=== PATIENT | female | born 1985 ===

== ENCOUNTER 2024-11-27 10:48 | Outpatient (AMB) | payer BC, SELFPAY ==
--- NOTE | 2024-11-27 11:27 | A.OFFPC_ITS ---
Vital Signs 11/27/24 11:32 Height 4 ft 11.21 in Weight 141 lb 2 oz BMI 28.3 BP 106/68 Blood Pressure Location Rt brachial Position Sitting Pulse 87 Pulse Source Pulse Oximeter Temp 98.3 F Temp Source Temporal Artery Scan Pulse Oximetry (%) 97 Oxygen Delivery Method Room Air Intake Visit Reasons: Annul PE- New patient Accompanied by: Self / Same As Patient Allergies No Known Allergies Allergy (Verified 11/27/24 11:38) Medication List - Last Reconciled 11/27/24 by Aliya Morales PA-C aspirin 162 mg PO DAILY docosahexaenoic acid ( DHA) mg PO ferrous gluconate 324 mg PO DAILY Tobacco use date assessed: 11/27/24 Dental Screening Dental Screen Date: 11/27/24 Did you have a dental visit in the last 12 months?: Yes Was dental information given to patient?: Patient has dentist HPI Annul PE- New patient HPI Details The patient is a 39-year-old female presenting with the need to establish care with a new primary care provider due to insurance changes, an annual physical exam and to address cardiac concerns during . The patient is currently seven months with a due date of February 13. This is her first , and she has a history of one prior that did not result in a live . She also has a history of 1 . She is last menstrual period May 15. She is currently being followed by [facility]. In August, the patient experienced a syncopal episode while out for breakfast, which led to a hospital visit at [facility]. During this episode, she felt nauseous and fainted, resulting in a fall. The hospital evaluation suggested possible dehydration, and an EKG showed some irregularities, prompting her OB to recommend a cardiology referral. She had an episode of syncope and was seen in the emergency department in August. At that time The EKG revealed a T wave inversion in lead 3, but no acute ischemia was noted. She was then discharged home. The patient reports occasional chest pain, which she attributes to compression from , but no recent syncope or severe episodes have occurred. Reports her OBGYN noticed that they reported a T-wave inversion in lead 3 and that she should go to the web development director. The OBGYN tried to refer the patient to the web development director although due to the OBGYN not being a primary care provider her insurance did not allow this and patient needed to establish a new primary care provider for Cardiology referral. The patient has a family history of heart issues, breast cancer, and skin cancer. Her paternal grandmother of breast cancer, and her father has skin cancer. Social History - Family status: , expecting firs t child - Housing: Recently moved to [facility] Medical History (Updated 11/27/24 @ 12:50 by Aliya Morales PA-C) History of herpes genitalis Heart murmur T wave inversion in EKG Annual physical exam Atypical syncope Social History Housing: House Patient Tobacco Use Status: Former Tobacco user service: No Current occupational status: employed Cognitive needs: No Hearing needs: No Vision needs: Yes (rx glasses) Questionnaire PHQ-9 Over the last 2 weeks, how often have you been bothered by any of the following problems? 1. Little interest or pleasure in doing things: not at all 2. Feeling down, depressed, or hopeless: not at all 3. Trouble falling or staying asleep, or sleeping too much: not at all 4. Feeling tired or having little energy: not at all 5. Poor appetite or overeating: not at all 6. Feeling bad about yourself - or that you are a failure or have let yourself or your family down: not at all 7. Trouble concentrating on things, such as reading the newspaper or watching television: not at all 8. Moving or speaking so slowly that other people could have noticed. Or the opposite - being so fidgety or restless that you have been moving around a lot more than usual: not at all 9. Thoughts that you would be better off or of hurting yourself in some way: not at all Total score: 0 Depression Screening Interpretation: Negative Depression Screening Done: Yes 12414 - PHQ-9 Billing: Yes Source: Developed by Drs. Saran Thomas, Mimi Smith, Alexander Yanes and colleagues, with an educational alicia from [employer]. Thrive Questionnaire Date Thrive assessed: 11/27/24 I am a: Patient What is your living situation today?: I have a steady place to live Within the past 12 months, did the food you bought not last and you didn't have the money to get more?: Never true Within the past 12 months, did you worry whether your food would run out before you got money to buy more?: Never true Do you have trouble paying for medicines?: No Do you have trouble getting transportation to medical appointments?: No Do you have trouble paying your heating and electricity bill?: No Do you have trouble taking care of your child, family member or friend?: No Do you have trouble with day-to-day activities such as bathing, preparing meals, shopping, managing finances, etc.?: No Are you currently unemployed and looking for a job?: No Are you interested in more education?: No Please select the resources that you would like help with: None THRIVE Score: 0 AUDIT C Alcohol Use Questionnaire (AUDIT-C) 1. How often do you have a drink containing alcohol?: Never Total Score: 0 Score Reviewed/Action Taken: No LEIA-7 AMB Questionnaire LEIA-7 Date LEIA - 7 assessed: 11/27/24 Feeling nervous, anxious, or on edge: 0 = Not at all Not being able to stop or control worryin = Not at all Worrying too much about different things: 0 = Not at all Trouble relaxin = Not at all Being so restless that it is hard to sit still: 0 = Not at all Becoming easily annoyed or irritable: 0 = Not at all Feeling afraid as if something awful might happen: 0 = Not at all Total LEIA-7 score (0-4 normal; 5-9 mild; 10-14 moderate; 15-21 severe): 0 Source: Developed by Drs. Saran Thomas, Mimi Smith, Alexander Yanes and colleagues, with an educational alicia from [employer]. LEIA-7 Assessment Billing LEIA-7 Assessment Tool: LEIA-7 Assessment 88646 Review of Systems Const Details: - Cardiovascular: Reports occasional chest pain, denies recent syncope - Respiratory: Reports constant shortness of breath, denies recent severe episodes - Gastrointestinal: Denies black or bloody stools, unintentional weight loss All systems reviewed & are unremarkable except as noted in HPI and below Physical exam (Primary Care) Vital Signs: Last Vital Signs Temp 98.3 F 11/27/24 11:32 Pulse 87 11/27/24 11:32 BP 106/68 11/27/24 11:32 Pulse Ox 97 11/27/24 11:32 Oxygen Delivery Method Room Air 11/27/24 11:32 Care Plan Goal for BP management: <140/90 at Goal BMI result Body Mass Index 28.3 BMI Assessment/Plan discussion: High BMI High, discussed plan: lifestyle, weight reduction, dietary, physical activity and other Tobacco/Smoking Status: Tobacco use Status Tobacco use date assessed 11/27/24 11/27/24 11:34 Patient Tobacco Use Status Former Tobacco user 11/27/24 11:34 PHQ-9: PHQ-9 Score PHQ-9: Total score 0 11/27/24 11:34 Depression Screening Interpretation: Negative Thrive Assessment: Date of Thrive Assessment Date Thrive assessed 11/27/24 11/27/24 11:34 Const Other: Appearance: Alert. Oriented X3. No acute distress. Head: Normal external exam. Normocephalic. Atraumatic. Eyes: Pupils are equal, round, and reactive to light. Extraocular movements intact. Conjunctiva and sclera normal. Eyelids normal. Ears: External auditory canal normal. Tympanic membranes normal. Throat: Pharynx normal. Uvula midline. Moist mucous membranes. Neck: Normal inspection. Neck supple. Full range of motion. No adenopathy. Thyroid Normal. No meningeal signs. No neck mass noted. Cardiovascular: Normal heart rate and rhythm. Heart sound normal. No murmurs noted. Pulses normal throughout. Note: A murmur was detected during the exam. Respiratory: No respiratory distress. Painless inspiration. Breath sounds normal. No wheezes/rales/rhonchi noted. Chest nontender. No accessory muscle usage noted or decreased air movement noted. Abdomen: Soft and nontender. Gravid uterus consistent with dates. Back: No costovertebral angle tenderness. Full range of motion noted. Skin: Skin warm and dry. Normal skin color. Normal skin turgor. No rashes/lesions/lacerations noted. Extremities: No lower extremity edema. Extremities exhibit normal range of motion. Extremities nontender. Neuro: Oriented X 3. No motor deficit. No sensory deficit. Reflexes normal. Office Procedures Flu Questionnaire Does the patient have a severe egg allergy?: No Does the patient have severe life threatening allergies?: No Does the patient have a fever or illness today?: No Has the patient ever had Guillain-[place] Syndrome?: No Has the patient ever had any past reaction to a flu shot?: No Immunizations Fluarix [id number] (PF) 45 mcg (15 mcg x 3)/0.5 mL IM syringe Performing Provider: Aliya Morales PA-C [facility] Documented (not given) by: Lisbeth Hoang CMA on 11/27/24 11:34 Reason Not Given: Patient Refused Results Reviewed Results Reviewed: - EKG: T wave inversion in lead 3, normal sinus rhythm, no acute ischemia Coding Level of Care Code New Pt Level 4 (10218) New Pt Prev Care 40-64y(95765) Diagnoses Annual physical exam Z00.00 Atypical syncope R55 T wave inversion in EKG R94.31 Heart murmur R01.1 Z34.90 Additional Codes PHQ-9 - 56563 - PHQ-9 Billing: Yes ([id number]) LEIA-7 Assessment Billing - LEIA-7 Assessment Tool: LEIA-7 Assessment 32320 ([id number]) Time Spent (min) 60 Assessment & Plan Assessment & Plan (1) Annual physical exam: Code(s): Z00.00 - Encounter for general adult medical examination without abnormal findings Category: Medical (2) Atypical syncope: Code(s): R55 - Syncope and collapse Category: Medical Plan: The patient experienced a syncopal episode in August, which was evaluated at [facility]. The episode was possibly related to dehydration, and an EKG showed irregularities. A referral to cardiology has been recommended for further evaluation. (3) T wave inversion in EKG: Code(s): R94.31 - Abnormal electrocardiogram [ECG] [EKG] Category: Medical Plan: The EKG showed a T wave inversion in lead 3, with no evidence of acute ischemia. The patient is advised to follow up with cardiology for further assessment and management. (4) Heart murmur: Code(s): R01.1 - Cardiac murmur, unspecified Category: Medical Plan: A heart murmur was detected during the physical examination. The patient is advised to consult with a web development director for further evaluation and management. (5) : Code(s): Z34.90 - Encounter for supervision of normal , unspecified, unspecified trimester Category: Medical Plan: The patient is currently seven months with a due date of February 13. She is advised to continue regular care and follow up with her OB for ongoing management of her . Plan Plan Patient was informed and verbally consented to the use of an ambient scribe for clinic note documentation during this visit. 1. Syncope The patient experienced a syncopal episode in August, which was evaluated at [facility]. The episode was possibly related to dehydration, and an EKG showed irregularities. A referral to cardiology has been recommended for further evaluation. 2. T Wave Inversion In Lead 3 On Ekg The EKG showed a T wave inversion in lead 3, with no evidence of acute ischemia. The patient is advised to follow up with cardiology for further assessment and management. 3. Heart Murmur A heart murmur was detected during the physical examination. The patient is advised to consult with a web development director for further evaluation and management. 4. The patient is currently seven months with a due date of February 13. She is advised to continue regular care and follow up with her OB for ongoing management of her . I discussed with the patient the importance of following up with cardiology due to the detected heart murmur and EKG findings. We reviewed the potential implications of these findings and the need for further evaluation to ensure her cardiac health during . I also emphasized the importance of regular care and monitoring for any new symptoms. Orders: Orders Comprehensive [place]. Panel Fast Today Z00.00 - Encounter for general adult medical examination without abnormal findings Magnesium Today Z00.00 - Encounter for general adult medical examination without abnormal findings Lipid Panel Today Z00.00 - Encounter for general adult medical examination without abnormal findings Vitamin B12 and Folate Today Z00.00 - Encounter for general adult medical examination without abnormal findings C Reactive Protein Today Z00.00 - Encounter for general adult medical examination without abnormal findings Influenza [id number] Immunization Today Z23 - Encounter for immunization Complete Blood Count Auto Diff Today Z00.00 - Encounter for general adult medi reynaldo examination without abnormal findings Erythrocyte Sedimentation Rate Today Z00.00 - Encounter for general adult medical examination without abnormal findings Liver Panel Today Z00.00 - Encounter for general adult medical examination without abnormal findings Vitamin D 25-OH Total Today Z00.00 - Encounter for general adult medical examination without abnormal findings TSH reflex Free T4 Today Z00.00 - Encounter for general adult medical examination without abnormal findings UA CC w/rflx Micro + Cult Today Z00.00 - Encounter for general adult medical examination without abnormal findings Referrals Cardiology Referral R55 - Syncope and collapse Patient Instructions: - Follow up with cardiology for further evaluation of heart murmur and EKG f indings. - Continue regular care and monitor for any new symptoms. - Complete fasting blood work as ordered. - Schedule a follow-up appointment in three months.
[2024-11-27 11:32] VITALS: BP 106/68; PULSE 87; TEMP 36.8; O2SAT 97; BMI 28.3
--- OUTSIDE RECORDS SUMMARY | 2024-11-27 13:09 | XMS_ITS ---
Author Name [facility] Organization Unknown Results Test Name/Text Value Interpretation Date Range Source Service Cmmt XXX-Imp Aldana ID NOW Normal [facility]20[facility]23 [facility] SYMPTOMATIC DEF.BY CDC Unknown Normal 09/20/2023 [facility] BZE Ur Ql Scn NEGATIVE Normal [facility] Amphet Ur Ql Scn NEGATIVE Normal 09/20/2023 - [facility] Cannabinoids Ur Ql Scn NEGATIVE Normal 09/20/2023 - [facility] Barbiturates Ur Ql Scn NEGATIVE Normal 09/20/2023 - [facility] Benzodiaz Ur Ql Scn POSITIVE Abnormal 09/20/2023 - [facility] BILIRUB DIRECT SERPL [facility] 0.0 mg/dL Normal 09/20/2023 0 - 0.2 [facility] PROT SERPL [facility] 7.3 g/dL Normal 09/20/2023 6.4 - 8.5 [facility] ALT SERPL CC[facility] 22.0 U/L Normal 09/20/2023 7 - 52 [facility] AST SERPL [facility] 22.0 U/L Normal 09/20/2023 5 - 40 [facility] ALP SERPL-CCNC 56.0 U/L Normal 09/20/2023 34 - 104 [facility] ALBUMIN SERPL BCG MCNC 4.5 g/dL Normal 09/20/2023 3.5 - 5 [facility] BILIRUB SERPL [facility] 0.3 mg/dL Normal 09/20/2023 0.3 - 1 [facility] ALBUMIN/GLOB SERPL MRTO 1.6 Normal 09/20/2023 [facility] CALCIUM SERPL [facility] 9.4 mg/dL Normal 09/20/2023 8.4 - 10.2 [facility] CHLORIDE SERPL SCNC 103.0 mmol/L Normal 09/20/2023 98 - 1 07 [facility] ANION GAP SERPL SC[facility] 15.0 mmol/L Above high normal 5 - 14 [facility] CREAT SERPL [facility] 0.7 mg/dL Normal 09/20/2023 0.5 - 1 [facility] BUN SERPL [facility] 11.0 mg/dL Normal 09/20/2023 7 - 17 CTT HS HCO3 SER SCNC 26.0 mmol/L Normal 09/20/2023 24 - 32 CTT HS GLUCOSE SERPL MCNC 108.0 mg/dL Normal 09/20/2023 70 - 199 [facility] Glomerular filtration rate/1.73 sq M. predicted 112.0 Normal 09/20/2023 60 - [facility] SODIUM SERPL SC[facility] 144.0 mmol/L Normal 09/20/2023 135 - 14 5 [facility] POTASSIUM SERPL [facility] 3.9 mmol/L Normal 09/20/2023 3.5 - 5 .1 [facility] LIPASE SERPL [facility] 24.0 U/L Normal 09/20/2023 11 - 82 [facility] AMYLASE SER[facility] 34.0 U/L Normal 09/20/2023 29 - 103 [facility] NEUTROPHILS NFR BLD AUTO 55.7 % Normal 09/20/2023 44 - 74 [facility] BASOPHILS NFR BLD AUTO 1.1 % Normal 09/20/2023 0 - 2 COUNTS INCLUDE 234 BEDS AT THE [facility] EOSINOPHIL NFR BLD AUTO 1.4 % Normal 09/20/2023 0 - 6 COUNTS INCLUDE 234 BEDS AT THE [facility] BASOPHILS IN BLOOD BY AUTOMATED COUNT 0.1 K/uL Normal 09/20/2023 0 - 0.2 COUNTS INCLUDE 234 BEDS AT THE [facility] IMMATURE GRANULOCYTE, PERCENT 0.5 % Normal 09/20/2023 0 - 1 COUNTS INCLUDE 234 BEDS AT THE [facility] NUCLEATED RBC 0.0 % Normal 09/20/2023 0 - 1 [facility] MONOCYTES NFR BLD AUTO 4.0 % Normal 09/20/2023 2 - 12 [facility] NEUTROPHILS NO. BLD AUTO 3.5 K/uL Normal 09/20/2023 1.8 - 7.8 COUNTS INCLUDE 234 BEDS AT THE [facility] MONOCYTES NO. BLD AUTO 0.3 K/uL Normal 09/20/2023 0 - 0. 8 COUNTS INCLUDE 234 BEDS AT THE [facility] EOSINOPHIL NO. BLD AUTO 0.1 K/uL Normal 09/20/2023 0 - 0.5 COUNTS INCLUDE 234 BEDS AT THE [facility] LYMPHOCYTES NO. BLD AUTO 2.4 K/uL Normal 09/20/2023 1 - 3.2 COUNTS INCLUDE 234 BEDS AT THE [facility] LYMPHOCYTES NFR BLD AUTO 37.3 % Normal 09/20/2023 20 - 48 COUNTS INCLUDE 234 BEDS AT THE [facility] IMMATURE GRANULOCYTE, ABSOLUTE 0.03 k/uL Normal 09/20/2023 - 0.1 COUNTS INCLUDE 234 BEDS AT THE [facility] MCV RBC AUTO 87.2 fL Normal 09/20/2023 78 - [facility] NO. BLD AUTO 4.23 M/uL Normal 09/20/2023 4.2 - 5.4 [facility] HGB BLD MCNC 11.7 g/dL Below low normal 09/20/2023 12.5 - 16 COUNTS INCLUDE 234 BEDS AT THE [facility] PMV BLD AUTO 8.6 fL Normal 09/20/2023 7.4 - 11.4 [facility] PLATELET NO. BLD AUTO 375.0 K/uL Normal 09/20/2023 150 - 450 COUNTS INCLUDE 234 BEDS AT THE [facility] MCHC RBC AUTO MCNC 31.7 g/dL Below low normal 09/20/2023 32 - 36 COUNTS INCLUDE 234 BEDS AT THE [facility] MCH RBC QN AUTO 27.7 pg Normal 09/20/2023 25 - 33 [facility] WBC NO. BLD AUTO 6.3 K/uL Normal 09/20/2023 4 - 10.[facility] VFR BLD AUTO 36.9 % Below low normal 09/20/2023 37 - 47 COUNTS INCLUDE 234 BEDS AT THE [facility] RDW RBC AUTO RTO 14.6 % Normal 09/20/2023 12.1 - 16.2 COUNTS INCLUDE 234 BEDS AT THE [facility] ETHANOL SERPL MCNC 323.0 mg/dL Above high normal 09/20/2023 0 - 10 COUNTS INCLUDE 234 BEDS AT THE [facility] LDH SERPL L TO P CCNC 158.0 U/L Normal 09/20/2023 125 - 2 20 COUNTS INCLUDE 234 BEDS AT THE [facility] History of Medication Use Medication Directions Dispensed Refills Start Date End Date Status sulfamethoxazole-trim ethoprim (BACTRIM DS,SEPTRA DS) 800-160 MG per tablet Take 1 tablet by mouth 2 (two) times a day. 5 active disulfiram (ANTABUSE) 250 MG tablet Take 1 tablet (250 mg total) by mouth daily. 5 active traZODone (DESYREL) 50 MG tablet Take 1 tablet (50 mg total) by mouth nightly. 5 active varenicline (CHANTIX ALBARO) 0.5 MG X 11 & 1 MG X 42 tablet Take one 0.5 mg tab by mouth once daily for 3 days, then take one 0.5 mg tab twice daily for 4 days, then take one 1 mg tab twice daily. 5 active vortioxetine (TRINTELLIX) 20 MG tablet Take 1 tablet (20 mg total) by mouth daily. 5 active Vitamin D3 (CHOLECALCIFEROL) 50 MCG (2000 UT) tablet Take 1 tablet (2,000 Units total) by mouth daily. 4 active buprenorphine-naloxon e (SUBOXONE) 2-0.5 MG SL tablet 1 tablet 1 tablet, Sublingual, Once, On Tue09/21/23 at 0630, For 1 dose 4 09/21/19 24 completed ondansetron (ZOFRAN-ODT) 4 MG disintegrating tablet 4 mg 4 mg, Oral, Once, On Tue09/21/23 at 0245, For 1 dose 4 09/21/19 completed buPROPion (WELLBUTRIN XL) 24 hr tablet 300 mg 300 mg, Oral, Daily, First dose on Tue09/21/23 at 0930DO NOT CRUSH 4 active gabapentin (NEURONTIN) capsule 400 mg 400 mg, Oral, 3 times daily, First dose on Tue09/21/23 at 0930 4 active hydrOXYzine (VISTARIL) capsule 50 mg 50 mg, Oral, 3 times daily PRN, anxiety, Starting on Tue09/21/23 at 0927 4 active propranolol (INDERAL) tablet 10 mg 10 mg, Oral, 3 times daily, First dose on Tue09/21/23 at 0900 4 active thiamine mononitrate (VITAMIN B-1) tablet 100 mg 100 mg, Oral, Daily, First dose on Tue09/21/23 at 0900 4 active LORazepam (ATIVAN) tablet 2 mg 2 mg, Oral, Every 30 min PRN, sedation, CIWA 16-20, Starting on Tue09/20/23 at 1323Hold if respiratory rate less than 10 or O2 sat less than 92%. Per alcohol withdrawal protocol. 4 active nicotine (NICODERM CQ) 21 MG/24HR 1 patch 1 patch, Transdermal, Administer over 24 Hours, Daily, First dose (after last modification) on Tue09/21/23 at 1045 4 active gabapentin (NEURONTIN) 400 MG capsule Take 1 capsule (400 mg total) by mouth 3 (three) times a day. 4 active Trintellix 20 MG TABS tablet Take 1 tablet (20 mg total) by mouth daily. 4 active Bactrim DS 800 mg-160 mg tablet Take 1 tablet every 12 hours by oral route as directed for 3 days. 4 active famotidine (Pepcid) tablet 20 mg 20 mg, oral, Once, On Tue04/18/23 at 1759, For 1 dose 4 04/18/19 24 completed iohexoL (Omnipaque) 350 mg iodine/mL injection 80 mL 80 mL, intravenous, Once in imaging, contrast, Starting on Tue04/18/23 at 1641, For 1 dose 4 04/18/19 24 completed lactulose 20 gram/30 mL oral solution 20 g 20 g, oral, Once, On Tue04/18/23 at 1759, For 1 dose 4 04/18/19 24 completed sodium chloride 0.9 % bolus 1,000 mL 1,000 mL, intravenous, at 1,000 mL/hr, Administer over 1 Hours, Once, On Tue04/18/23 at 1519, For 1 dose 4 04/18/19 completed sodium chloride 0.9 % flush 60 mL 60 mL, intravenous, Administer over 1 Minutes, Once in imaging, imaging study, Starting on Tue04/18/23 at 1641, For 1 dose 4 04/18/19 24 completed gabapentin (NEURONTIN) 300 MG capsule Take 2 capsules (600 mg total) by mouth 3 (three) times a day. 3 01/07/20 23 active hydrOXYzine pamoate (VISTARIL) 50 MG capsule Take 1 capsule (50 mg total) by mouth 3 (three) times a day as needed for anxiety. 3 01/07/20 active buprenorphine-naloxon e (SUBOXONE) 2-0.5 mg per SL film Take 1/2 film daily, and can also take one additional 1/2 film daily as needed for cravings or withdrawal 3 active buprenorphine-naloxon e (SUBOXONE) 2-0.5 mg per SL film Place 0.5 Film under the tongue daily. May take in addition to scheduled 0.5 film dose for a total of 2 mg daily for breakthrough withdrawal Max Daily Amount: 0.5 Film 3 01/13/20 active LORazepam (ATIVAN) tablet 1 mg 1 mg, Oral, Every 1 hour prn, sedation, CIWA 8-11, Starting on Tue09/20/23 at 1323Hold if respiratory rate less than 10 or O2 sat less than 92%. Per alcohol withdrawal protocol. 3 09/20/19 24 active LORazepam (ATIVAN) 1 MG tablet Take half tablet (0.5 mg) in AM and half a tablet (0.5mg) in the afternoon and then one tablet (1mg) at night. 3 suspended naloxone (NARCAN) 4 mg/0.1 mL Liquid nasal spray device [place] contents (4mg) into one nostril once. May repeat every 2 to 3 minutes in alternating nostrils. Call 911 immediately after use. 3 12/15/19 active prazosin (MINIPRESS) 1 MG capsule Take 1 capsule (1 mg total) by mouth nightly. 3 01/07/20 23 active gabapentin (NEURONTIN) 300 MG capsule Take 1 capsule (300 mg total) by mouth 3 (three) times a day. 3 01/01/20 23 active gabapentin (NEURONTIN) 300 MG capsule Take 1 capsule (300 mg total) by mouth 3 (three) times a day. 3 active linaclotide (Linzess) 145 MCG Cap capsule Take 1 capsule (145 mcg total) by mouth daily. 3 01/13/20 23 active buPROPion (WELLBUTRIN XL) 300 MG 24 hr tablet Take 1 tablet (300 mg total) by mouth daily. Swallow whole; do not crush, chew, or divide. 3 01/07/20 23 active buprenorphine HCl-naloxone HCl 2-0.5 mg (Suboxone) 2-0.[address] sublingual film Place 2 each under the tongue daily. 3 active buprenorphine HCl-naloxone HCl 2-0.5 mg (SUBOXONE) 2-0.[address]ling[address] film Place 1 each under the tongue. 3 active buprenorphine-naloxon e (SUBOXONE) 2-0.5 mg per SL film Place 1 Film under the tongue daily. Do not start before November 03, 2022. Max Daily Amount: 1 Film 3 suspended folic acid (FOLVITE) 1 MG tablet Take 1 tablet (1 mg total) by mouth daily. Do not start before November 03, 2022. 3 suspended linaclotide (Linzess) 145 MCG CAPS Take 1 capsule (145 mcg total) by mouth daily. 3 active multivitamin with minerals Tab tablet Take 1 tablet by mouth daily. Do not start before November 03, 2022. 3 suspended thiamine mononitrate (VITAMIN B-1) 100 MG tablet Take 2 tablets (200 mg total) by mouth daily. Do not start before November 03, 2022. 3 suspended folic acid (FOLVITE) tablet 1 mg 1 mg, Oral, Daily, First dose on Tue09/21/23 at 0930 3 09/20/19 24 active QUEtiapine (SEROquel) 100 MG tablet Take 1 tablet (100 mg total) by mouth nightly as needed (sleep). 3 01/22/20 23 active acamprosate (CAMPRAL) 333 MG tablet Take 2 tablets (666 mg total) by mouth 3 (three) times a day. 3 01/01/20 23 active acamprosate (CAMPRAL) 333 MG tablet Take 2 tablets (666 mg total) by mouth 3 (three) times a day. 3 active buPROPion (WELLBUTRIN XL) 300 MG 24 hr tablet Take 1 tablet (300 mg total) by mouth daily. 3 active hydrOXYzine (ATARAX) 50 MG tablet Take 1 tablet (50 mg total) by mouth 4 (four) times a day as needed. 3 active Multiple Vitamins-Minerals (Therapeutic-M/Lutein ) TABS Take 1 tablet by mouth daily. 3 active QUEtiapine (SEROquel) 100 MG tablet Take 1 tablet (100 mg total) by mouth every evening as needed. 3 active ALPRAZolam (XANAX) 0.5 MG tablet Take 1 tablet (0.5 mg total) by mouth 2 (two) times a day. 3 active nitrofurantoin monohydrate (MACROBID) 100 MG capsule Take 1 capsule (100 mg total) by mouth 2 (two) times a day with meals. Dispense generic equivalent of MACROBID 2 12/03/19 22 active propranolol (INDERAL) 40 MG tablet 1 active Trintellix 10 MG tablet 1 active ParaGard T 380A 380 square mm intrauterine device Take 1 device by intrauterine route. 0 06/16/19 24 completed Mirena 21 mcg/24 hours (8 yrs) 52 mg intrauterine device Take 1 device by intrauterine route. 8 12/04/19 20 completed clindamycin-benzoyl peroxide (BENZACLIN) 1-5 % external gel Apply topically daily. 5 active hydroquinone 4 % cream Apply topically 2 (two) times a day. Use to dark nogueira twice a day for three months 5 active spironolactone (ALDACTONE) 100 MG tablet Take 1 tablet (100 mg total) by mouth daily. 5 active bupropion HCl SR 150 mg tablet,12 hr sustained-release TAKE 1 TABLET DAILY X 7 DAYS, THEN TWICE A DAY 06/22/19 25 completed ciprofloxacin 0.3 % eye drops 2 DROPS OPHTHALMICALLY INTO AFFECTED EYE EVERY 4 HOURS 06/22/19 25 completed clonidine HCl 0.1 mg tablet TAKE 1 TABLET BY MOUTH TWICE A DAY NEEDED 06/22/19 25 completed cyanocobalamin (vit B-12) 1,000 mcg/mL injection solution INJECT 1 MILLILITER INTRAMUSCULARLY WEEKLY 06/22/19 25 completed disulfiram 250 mg tablet TAKE 1 TABLET BY MOUTH EVERY DAY 06/22/19 25 completed gabapentin 400 mg capsule TAKE 2 CAPSULES BY MOUTH 3 TIMES A DAY. 06/22/19 25 completed Linzess 145 mcg capsule TAKE 1 CAPSULE DAILY AT LEAST 30 MINUTES BEFORE THE FIRST MEAL OF THE DAY ON AN EMPTY STOMACH 06/22/19 25 active meloxicam 15 mg tablet 1 TABLET ORALLY DAILY FOR 15 DAYS, THEN NEEDED FOR PAIN 06/22/19 25 completed prednisone 20 mg tablet 2 TABLETS DAILY X 3 DAYS, THEN 1 TAB DAILY X 3 DAYS 06/22/19 25 completed propranolol 10 mg tablet TAKE 1 TABLET BY MOUTH THREE TIMES A DAY 06/22/19 25 completed Suboxone 4 mg-1 mg sublingual film TAKE 1 APPLICATION (SUBLINGUAL) 1 TIME PER DAY FOR 15 DAYS 06/22/19 25 completed trazodone 50 mg tablet TAKE 1 TABLET BY MOUTH EVERY DAY AT NIGHT 06/22/19 25 completed valacyclovir 1 gram tablet TAKE 1 TABLET BY MOUTH TWICE A DAY DIRECTED FOR 10 DAYS 06/22/19 25 completed Vitamin D3 50 mcg (2,000 unit) tablet TAKE 1 TABLET BY MOUTH EVERY DAY 06/22/19 25 completed gabapentin 300 mg capsule TAKE 3 CAPSULES BY MOUTH 3 TIMES A DAY. 06/19/19 25 active lidocaine 5 % topical ointment APPLY TO AFFECTED AREA 4 TIMES A DAY NEEDED 06/19/19 25 completed Suboxone 2 mg-0.5 mg sublingual film USE 1 FILM UNDER TONGUE ONCE A DAY 06/19/19 25 active alprazolam 0.5 mg tablet TAKE 1 TABLET BY MOUTH TWICE A DAY NEEDED FOR ANXIETY 06/16/19 24 completed lorazepam 1 mg tablet PLEASE SEE ATTACHE [facility]yers FOR DETAILED DIRECTIONS 06/16/19 24 completed nitrofurantoin monohydrate/macrocrys tals 100 mg capsule TAKE 1 CAPSULE BY MOUTH TWICE A DAY FOR 7 DAYS 06/16/19 24 completed pantoprazole 40 mg tablet,delayed release 1 TABLET TWICE A DAY 06/16/19 24 active acamprosate 333 mg tablet,delayed release TAKE 2 TABLETS BY MOUTH 3 TIMES A DAY. 05/19/19 24 completed bupropion HCl XL 300 mg 24 hr tablet, extended release TAKE 1 TABLET (300 MG TOTAL) BY MOUTH DAILY SWALLOW WHOLE DO NOT CRUSH, CHEW, OR DIVIDE 05/19/19 24 completed cefdinir 300 mg capsule TAKE 1 CAPSULE BY MOUTH TWICE A DAY FOR 7 DAYS 05/19/19 24 completed cephalexin 500 mg capsule TAKE 1 CAPSULE BY MOUTH 3 TIMES A DAY 05/19/19 24 completed docusate sodium 100 mg capsule 1 CAPSULE ORALLY 2 TIMES PER DAY FOR CONSTIPATION 05/19/19 24 completed gabapentin 600 mg tablet 05/19/19 24 completed hydroxyzine HCl 50 mg tablet TAKE 1 TABLET (50 MG TOTAL) BY MOUTH 4 TIMES DAILY (EVERY 6 HOURS) NEEDED FOR NAUSEA OR ANXIETY. 05/19/19 24 completed hydroxyzine pamoate 25 mg capsule 05/19/19 24 completed hydroxyzine pamoate 50 mg capsule 05/19/19 24 completed Narcan 4 mg/actuation nasal spray PLEASE SEE ATTACHED FOR DETAILED DIRECTIONS 05/19/19 24 completed nicotine (polacrilex) 2 mg gum APPLY 1 EACH TO THE MOUTH OR THROAT EVERY 2 (TWO) HOURS NEEDED FOR SMOKING CESSATION. 05/19/19 24 completed nicotine (polacrilex) 4 mg gum 05/19/19 24 completed nicotine 21 mg/24 hr daily transdermal patch APPLY 1 PATCH TRANSDERMALLY DAILY 05/19/19 24 completed phenazopyridine 200 mg tablet TAKE 1 TABLET BY MOUTH THREE TIMES A DAY FOR 3 DAYS 05/19/19 24 completed prazosin 1 mg capsule TAKE 3 CAPSULES (3 MG TOTAL) BY MOUTH NIGHTLY. 05/19/19 24 completed quetiapine 100 mg tablet TAKE 1 TABLET (100 MG TOTAL) BY MOUTH NIGHTLY NEEDED (SLEEP). 05/19/19 24 completed sulfamethoxazole 800 mg-trimethoprim 160 mg tablet TAKE 1 TABLET BY MOUTH TWICE A DAY FOR 5 DAYS 05/19/19 24 completed thiamine HCl (vitamin B1) 100 mg tablet TAKE 2 TABLETS (200 MG TOTAL) BY MOUTH DAILY. DO NOT START BEFORE 2022. 05/19/19 24 completed Trintellix 10 mg tablet TAKE 1 TABLET (10 MG TOTAL) BY MOUTH DAILY. DO NOT START BEFORE 2022. 05/19/19 24 completed Vraylar 1.5 mg capsule TAKE 1 CAPSULE BY MOUTH EVERY DAY 05/19/19 24 completed Vraylar 3 mg capsule TAKE 1 CAPSULE BY MOUTH EVERY DAY 05/19/19 24 completed folic acid 1 mg tablet TAKE 1 TABLET (1 MG TOTAL) BY MOUTH DAILY. DO NOT START BEFORE 2022. 01/18/20 23 completed musely spot cream melasma low w/hc (hq12/tret0.05%/hc2.5 %) Start with a pea size amount to spots at night, OR directions per MD. Use [employer] software on [employer] to guide you daily. 01/18/20 23 completed Trintellix 20 mg tablet TAKE 1 TABLET BY MOUTH EVERY DAY 01/18/20 23 active amoxicillin 875 mg-potassium clavulanate 125 mg tablet TAKE 1 TABLET BY MOUTH TWICE A DAY 05/13/19 23 completed buprenorphine 8 mg-naloxone [address] 1 FILM UNDER THE TONGUE DAILY 05/13/19 23 completed diazepam 2 mg tablet TAKE 1 TABLET (ORAL) 2 TIMES PER DAY NEEDED FOR ANXIETY 05/13/19 23 completed ibuprofen 800 mg tablet TAKE 1 TABLET BY MOUTH EVERY 6 HOURS NEEDED 05/13/19 23 completed quetiapine 50 mg tablet TAKE 1 TABLET BY MOUTH DAILY AT BEDTIME 05/13/19 23 completed topiramate 100 mg tablet TAKE 1 TABLET BY MOUTH DAILY AT BEDTIME 05/13/19 23 completed diazepam 5 mg tablet TAKE 1 TABLET (ORAL) 3 TIMES PER DAY PRN FOR 10 DAYS 03/16/19 23 completed dicyclomine 10 mg capsule TAKE 1 CAPSULE BY MOUTH EVERY 6 HOURS NEEDED 03/16/19 23 completed hydroquinone 4 % topical cream APPLY TO FACE TWO TIMES A DAY 03/16/19 23 completed ondansetron 4 mg disintegrating tablet DISSOLVE 1 TABLET BY MOUTH EVERY 6 HOURS NEEDED 03/16/19 23 completed prednisone 10 mg tablet TAKE 4-3-2-1 TABLET (ORAL) 1 TIME PER DAY FOR 12 DAYS TAKE FOR THREE DAYS EACH 03/16/19 23 completed promethazine-DM 6.25 mg-15 mg/5 mL oral syrup TAKE 5 ML (ORAL) 3 TIMES PER DAY NEEDED - COUGH FOR 10 DAYS 03/16/19 23 completed propranolol 40 mg tablet TAKE 1 TABLET BY MOUTH TWICE A DAY 03/16/19 23 completed topiramate 50 mg tablet TAKE 1 TABLET (ORAL) AT BEDTIME FOR 30 DAYS 03/16/19 23 completed clonazepam 0.5 mg tablet 02/17/19 21 completed escitalopram 20 mg tablet 02/17/19 21 completed propranolol 20 mg tablet 02/17/19 21 completed spironolactone 50 mg tablet 02/17/19 21 completed azithromycin 250 mg tablet 12/04/19 20 completed ciprofloxacin 500 mg tablet 12/04/19 20 completed dextroamphetamine-amp hetamine 10 mg tablet Take 1 tablet every day by oral route. 12/04/19 20 completed Brintellix 03/29/19 19 completed dextroamphetamine-amp hetamine ER 10 mg 24hr capsule,extend release 03/29/19 19 completed Karbinal ER 4 mg/5 mL oral suspension,extended release 03/29/19 19 completed Symbicort 160 mcg-4.5 mcg/actuation HFA aerosol inhaler 03/29/19 19 completed Bactrim DS 800 mg-160 mg tablet active ALPRAZolam (XANAX) 0.5 MG tablet Take 1 tablet (0.5 mg total) by mouth 2 (two) times a day as needed for anxiety. suspended Amitiza 24 MCG Amitiza 24 MCG ac tive buprenorphine 2 mg-naloxone 0.5 mg sublingual film DISSOLVE ONE FILM SUBLINGUALLY ONCE DAILY DISSOLVE ONE FILM SUBLINGUALLY ONCE DAILY completed buprenorphine 8 mg-naloxone [address] 1 FILM UNDER THE TONGUE DAILY PLACE 1 FILM UNDER THE TONGUE DAILY completed buprenorphine-naloxon e (SUBOXONE) 8-2 mg per SL tablet Suboxone SUBL ; Start Date: ; End Date: active cariprazine (Vraylar) 3 MG capsule Take 1 capsule (3 mg total) by mouth daily. suspended diazepam 2 mg tablet TAKE 1 TABLET (ORAL) 2 TIMES PER DAY NEEDED FOR ANXIETY TAKE 1 TABLET (ORAL) 2 TIMES PER DAY NEEDED FOR ANXIETY completed hydroquinone 4 % topical cream APPLY TO FACE TWO TIMES A DAY APPLY TO FACE TWO TIMES A DAY completed Levonorgestrel (MIRENA IU) by Intrauterine route. active Linzess 145 mcg capsule TAKE 1 CAPSULE BY MOUTH EVERY DAY TAKE 1 CAPSULE BY MOUTH EVERY DAY completed LORazepam (ATIVAN) 1 MG tablet Take 1 tablet (1 mg total) by mouth 3 (three) times a day. Take 1 tablet by mouth 3 times daily suspended multivitamin multivitamin comple lisset Multivitamins Multivitamins acti ve nicotine (NICODERM CQ) 21 MG/24HR patch Place 1 patch on the skin daily. suspended nicotine polacrilex (Nicotine Mini) 4 MG lozenge Apply 1 lozenge (4 mg total) to the mouth or throat as needed for smoking cessation. suspended ParaGard T 380A 380 square mm intrauterine device Take 1 device by intrauterine route. Take 1 device by intrauterine route. complete d propranolol 40 mg tablet TAKE 1 TABLET BY MOUTH TWICE A DAY TAKE 1 TABLET BY MOUTH TWICE A DAY completed quetiapine 50 mg tablet TAKE 1 TABLET BY MOUTH DAILY AT BEDTIME TAKE 1 TABLET BY MOUTH DAILY AT BEDTIME completed Suboxone 2 mg-0.[address] 1 FILM(S) BY SUBLINGUAL ROUTE , 1 TIME PER DAY , FOR [address] 1 FILM(S) BY SUBLINGUAL ROUTE , 1 TIME PER DAY , FOR 28 DAYS completed topiramate 100 mg tablet TAKE 1 TABLET BY MOUTH DAILY AT BEDTIME TAKE 1 TABLET BY MOUTH DAILY AT BEDTIME completed Trintellix 10 mg tablet TAKE 1 TABLET BY MOUTH EVERY DAY TAKE 1 TABLET BY MOUTH EVERY DAY completed Trintellix 20 MG Trintellix 20 MG active Trintellix 20 mg tablet Trintellix 20 mg tablet completed Varenicline Tartrate (Starter) 0.5 MG X 11 & 1 MG X 42 Varenicline Tartrate (Starter) 0.5 MG X 11 & 1 MG X 42 active Vraylar 1.5 mg capsule TAKE 1 CAPSULE BY MOUTH EVERY DAY TAKE 1 CAPSULE BY MOUTH EVERY DAY completed Wellbutrin XL 300 MG Wellbutrin XL 300 MG active Allergies Allergen Reaction Severity Comment Documented Date Source Statu s PLUM ITCHING 12/10/2022 [facility] active PLUMS ITCHING 12/10/2022 [facility] active PRUNUS PERSICA ITCHING 12/10/2022 [facility] active NO KNOWN ALLERGY (SITUATION) [facility] APPLE ITCHING [facility] AP[facility] FRUIT [facility] NE[facility] PEACH (PRUNUS PERSICA) ITCHING [facility] PEACHES ITCHING H[facility] PEAR ITCHING [facility] PLUM PULP ITCHING [facility] NO KNOWN ALLERGIES [facility] Problems Problem Status Onset Date Problem Type Date of Resolution Source Alcohol intoxication (HCC) active EncounterDiagnosisAct [facility] H Anxiety active EncounterDiagnosisAct [facility] Depression active EncounterDiagnosisAct [facility] Attention deficit hyperactivity disorder, predominantly inattentive type active 2017-03-23 [facility] Mixed anxiety and depressive disorder active 2024-06-22 [facility] Iron deficiency anemia active 2024-06-22 [facility] Viral hepatitis C active 2012-01-12 ProblemAct [facility] Genital herpes simplex active 2023-06-16 ProblemAct [facility] Abnormal cervical Papanicolaou smear active 2017-03-23 ProblemAct [facility] Anxiety active 2014-03-27 ProblemAct [facility] Alcohol use disorder active 2022-10-27 ProblemAct [facility] Severe sedative, hypnotic, or anxiolytic use disorder active 2022-12-15 ProblemAct [facility] Major depressive disorder, single episode, moderate active 2022-12-09 ProblemAct [facility] Post traumatic stress disorder (PTSD) active 2022-11-05 ProblemAct [facility] Panic attacks active 2023-04-16 ProblemAct [facility] Generalized anxiety disorder active 2022-11-04 ProblemAct [facility] Tobacco use disorder, severe, dependence active 2023-04-16 ProblemAct [facility] Severe episode of recurrent major depressive disorder, without psychotic features active 2022-11-02 [facility]Act [facility] Depressive disorder active 2014-03-27 ProblemAct [facility] Heroin use disorder, severe, in sustained remission active 2022-11-04 ProblemAct [facility] Dysuria active 2023-10-05 [facility] Other acne active 2014-03-27 ProblemAct [facility] Fishing hook foreign body, initial encounter active EncounterDiagnosisAct [facility] Arthropathy active 2014-03-27 [facility] Insomnia active 2023-04-16 [facility] Severe alcohol use disorder active 2023-04-15 Problem[facility] Puncture wound of right thumb, initial encounter active EncounterDiagnosisAct [facility] Major depressive disorder, recurrent episode, moderate active 2023-04-16 [facility] Electronic cigarette use active 2023-04-16 [facility] Attention deficit hyperactivity disorder, predominantly inattentive type active 2017-03-23 [facility] Opioid use disorder, severe, on maintenance therapy, dependence active 2022-12-09 [facility] IUD (intrauterine device) in place active 2022-10-28 Problem[facility] Alcoholic intoxication without complication (CMS/HCC) active 2022-11-28 ProblemAct [facility] Epigastric pain active EncounterDiagnosisAct [facility]MDSXH Immunizations Vaccine Date Source Lot Number Status Tdap 03/22/2024 [facility] [id number] completed COVID-19, mRNA, LNP-S, PF, 30 mcg/0.3 mL dose 04/29/2020 [facility] [id number] completed COVID-19, mRNA, LNP-S, PF, 30 mcg/0.3 mL dose 04/08/2020 C [facility] [id number] completed Encounters Encounter Type Encounter Reason Primary Diagnosis Location Date Ambulatory Encounter for test, result positive Encounter for test, result positive [facility], [facility] 07/20/2024 Ambulatory Encounter for test, result positive Encounter for test, result positive [facility], [facility] 07/20/2024 Ambulatory Dysuria Dysuria [facility] [employer], [facility] 06/22/2024 Ambulatory Other Other [facility] 03/22/2024 Ambulatory Consult [facility] 03/05/2024 Emergency Alcohol use, unspecified with intoxication, unspecified Alcohol use, unspecified with intoxication, unspecified [facility] 09/20/2023 Emergency Alcohol use, unspecified with withdrawal, unspecified Alcohol use, unspecified with withdrawal, unspecified [facility] 09/04/2023 Ambulatory [facility] for [facility] services aide exam (general) (routine) w/o abn findings [facility] aide exam (general) (routine) w/o abn findings [facility] [employer], [facility] 06/16/2023 Ambulatory Urinary tract infection, site not specified Urinary tract infection, site not specified [facility] 05/30/2023 Ambulatory Unsatisfactory cytologic smear of anus Unsatisfactory cytologic smear of anus [facility], [facility] 05/19/2023 Emergency Epigastric pain Epigastric pain [facility] 04/18/2023 Ambulatory Alcohol use, unspecified with intoxication, uncomplicated Alcohol use, unspecified with intoxication, uncomplicated [facility] 11/28/2022 Emergency Alcohol dependence, uncomplicated Alcohol dependence, uncomplicated [facility] 11/20/2022 Emergency Depression, unspecified Depression, unspecified [facility] 10/27/2022 Ambulatory Alcohol Intoxication Alcohol Intoxication [facility] 10/18/2022 Ambulatory [facility], [facility] 05/12/2022 Emergency R BREAST INFECTION MASTODYNIA [facility] Ambulatory [facility], [facility] 03/16/2022 Ambulatory Dysuria [facility] 11/26/[address] TO MEET DR SRUTHI LYNNE LOWER ABDOMINAL PAIN, UNSPECIFIED [facility] 09/26/2021 Ambulatory [facility], [facility] 09/26/2021 Care Team Organization Name Specialty Phone Email Start Date End Da te [facility] MARCE KAUR, Primary [facility] 03/15/2024 [facility] MARCE KAUR, Primary Care 03/15/2024 [facility] 02/08/2024 [facility] 02/08/2024 [facility] 09/20/2023 [facility] KAUR Primary Care 09/05/2023 08/21/2024 [facility] Primary Care 2023 [place] [facility] 06/07/2023 08/14/2024 [facility] NO PCP Primary Care 04/25/2023 [facility] 02/27/2023 [facility] 11/28/2022 [facility] 11/28/202211/08 [facility] 11/21/2022 05/15/2024 [facility] 11/20/2022 11/20/2022 [facility] 10/29/2022 024 [facility] 10/19/2022 09/26/2023 [facility] 10/18/2022 10/18/2022 [facility] 02/16/2022 08/07/2024 [facility] Laz Mcg[facility] 11/26/20212024 [facility] 11/26/2021 11/26/2021 [facility] 10/03/2021 [facility] 09/26/202109/26 [facility] MEDINA KAUR Primary Care 09/26/2021 [facility] KAUR Primary Care [facility], Primary Care
== END 2024-11-27 12:00 | disposition home or self-care (01) ==
LOC: HO.HMCSH 10:48
PROVIDERS: PCP Physician Assistant Medical; Visit Provider Physician Assistant Medical
DX: Z00.00 Encounter for general adult medical examination without abnormal findings (principal); R55 Syncope and collapse; R94.31 Abnormal electrocardiogram [ECG] [EKG]; R01.1 Cardiac murmur, unspecified; Z34.90 Encounter for supervision of normal pregnancy, unspecified, unspecified trimester; Z23 Encounter for immunization

== ENCOUNTER → 2024-11-27 10:48 | Outpatient (BNVA) | payer BC, SELFPAY | PROVIDERS: PCP Physician Assistant Medical; Visit Provider Physician Assistant Medical | DX: Z00.00 Encounter for general adult medical examination without abnormal findings (principal); O99.419 Diseases of the circulatory system complicating pregnancy, unspecified trimester; O26.899 Other specified pregnancy related conditions, unspecified trimester; R55 Syncope and collapse; R94.31 Abnormal electrocardiogram [ECG] [EKG]; R01.1 Cardiac murmur, unspecified; Z28.21 Immunization not carried out because of patient refusal | CPT/HCPCS: 96127 ==